=== PATIENT | female | born 1990 | race Caucasian/White ===

== ENCOUNTER 2023-01-23 15:04 | Inpatient (IN) ==
[2023-01-23] MEDS ORDERED: Nalbuphine 10 MG/ML 1 ML VIAL IV PRN (16:20)
[2023-01-23] MEDS ORDERED: Promethazine INJ(RESTRICTED) 25 MG/ML 1 ml VIAL IV PRN (16:20)
[2023-01-23] MEDS ORDERED: Buffered Lidocaine 1% SYRIN 1 ml INTRADERM ONE (16:20)
[2023-01-23] MEDS: miSOPROStol 100 mcg TAB PO SCH ×2 (16:44→20:45)
[2023-01-23] MEDS ORDERED: Lactated Ringers 1000 ml BAG 1,000 ML IV SCH (17:00)
[2023-01-23 17:55] LABS: Urine Benzodiazepine Screen None Detected (None Detect); Urine Cannabinoids Screen None Detected (None Detect); Urine Opiates Screen None Detected (None Detect)
[2023-01-24] MEDS: miSOPROStol 100 mcg TAB PO SCH (03:59)
[2023-01-24] MEDS ORDERED: Oxytocin in LR 20,000 MILLI.UNIT/1,000 ML BAG IV SCH ×2 (10:00→19:45)
[2023-01-24 11:04] LABS: ABS Lymphocytes 1.2 10^3/ul (1.0-4.8); ABS Monocytes 0.3 10^3/ul (0-0.8); ABS Neutrophils 7.9 10^3/ul (1.5-7.7); Eosinophil % 0.4 %; Hematocrit 38 % (35-47); Hemoglobin 13.1 g/dL (12.0-16.0); Mean Corpuscular HGB Conc 34 g/dL (31-36); Mean Corpuscular Hemoglobin 32 pg (27-31); Mean Corpuscular Volume 94 fL (80-97); Mean Platelet Volume 9.3 fL (7.4-10.4); Platelet Count 192 10^3/uL (150-450); Red Blood Count 4.09 10^6 /uL (3.70-4.87); Red Cell Distribution Width 15 % (10-15); White Blood Count 9.5 10^3/uL (3.5-10.8)
[2023-01-24] MEDS ORDERED: Lidocaine 1.5% EPI 1:200,000 30 ML SDV ONE (15:22)
[2023-01-24] MEDS ORDERED: OBEPIDURAL (200 ML) 200 ML EPIDURAL ONE (15:25)
[2023-01-24] MEDS: Lactated Ringers 1000 ml BAG 1,000 ML IV ONE ×2 (16:00→16:43)
[2023-01-24] MEDS ORDERED: Sodium Citrate/Citric Acid LIQ 15 ML UDC PO PRN (16:01)
[2023-01-24] MEDS ORDERED: Lactated Ringers 1000 ml BAG 1,000 ML IV ONE (16:01)
[2023-01-24] MEDS: Phenylephrine 40 mcg/mL 10mL (400mcg) SYRINGE IV PUSH PRN ×3 (16:29→16:37)
[2023-01-24] MEDS ORDERED: Phenylephrine 40 mcg/mL 10mL (400mcg) SYRINGE IV PUSH PRN (16:32)
[2023-01-24] MEDS ORDERED: OBEPIDURAL (200 ML) 200 ML EPIDURAL SCH (17:00)
[2023-01-24] MEDS ORDERED: Lactated Ringers 1000 ml BAG 1,000 ML IV SCH ×2 (17:00→20:00)
[2023-01-24] MEDS ORDERED: Methylergonovine 0.2 mg AMPULE 1 ml AMP ONE (19:07)
[2023-01-24] MEDS ORDERED: Witch Hazel PAD JAR TOPICAL PRN (19:38)
[2023-01-24] MEDS ORDERED: Dibucaine 1% OINT 28.35 GM TUBE PR PRN (19:38)
[2023-01-24] MEDS ORDERED: Lidocaine 1% VIAL 10 MG/ML VIAL 30 ML ONE (22:13)
[2023-01-25 06:52] LABS: ABS Lymphocytes 1.7 10^3/ul (1.0-4.8); ABS Monocytes 0.6 10^3/ul (0-0.8); ABS Neutrophils 9.1 10^3/ul (1.5-7.7); Eosinophil % 0.2 %; Hematocrit 34 % (35-47); Hemoglobin 11.9 g/dL (12.0-16.0); Lymphocyte % 15.2 %; Mean Corpuscular HGB Conc 35 g/dL (31-36); Mean Corpuscular Hemoglobin 33 pg (27-31); Mean Corpuscular Volume 94 fL (80-97); Mean Platelet Volume 9.1 fL (7.4-10.4); Platelet Count 173 10^3/uL (150-450); Red Blood Count 3.64 10^6 /uL (3.70-4.87); Red Cell Distribution Width 15 % (10-15); White Blood Count 11.5 10^3/uL (3.5-10.8)
[2023-01-26 09:09] VITALS: BP 100/54
== END 2023-01-26 13:10 | disposition home or self-care (01) | DRG 560 ==
LOC: MCHOBOUT 15:04 → MCHOB 16:16
PROVIDERS: ADMIT Advanced Practice Midwife; ATTEND Advanced Practice Midwife